=== PATIENT | male | born 1955 | race Two or more races ===

== ENCOUNTER 2016-02-21 18:21 | Inpatient (IN) | payer SELFPAY ==
[~2016-02-21] VITALS: Ht 165.1 cm; Wt 75.1 kg
[2016-02-21] VITALS (9 sets, daily range): BP systolic 100–120; BP diastolic 75–88
[2016-02-21 18:41] LABS: HEMATOCRIT 33.8 % (38.0-50.0); MCH 21.4 PG (29.0-34.0); MCHC 29.6 G/DL (30.0-36.0); MCV 72.4 FL (86-99); PLATELET COUNT 334 K/uL (156-360); RBC DIS.WIDTH-CV 17.9 % (11.8-14.6); RBC DIS.WIDTH-SD 46.1 % (39-53); RED BLOOD COUNT 4.67 M/uL (4.00-5.50); WHITE BLOOD COUNT 6.8 K/uL (4.1-10.2)
[2016-02-21 18:43] LABS: EOSINOPHIL (%) 1.3 % (0-5); EOSINOPHIL COUNT 0.1 K/uL (0-0.3); IMMATURE GRANULOCYTE (%) 0.1 % (0.0-0.7); IMMATURE GRANULOCYTE COUNT 0.1 K/uL; LYMPHOCYTE COUNT 2.3 K/uL (1.0-2.8); MONOCYTE (%) 9.5 % (3-12); MONOCYTE COUNT 0.7 K/uL (0-0.8); NEUTROPHIL (%) 54.7 % (45-76); NEUTROPHIL COUNT 3.7 K/uL (1.8-6.4)
[2016-02-21 18:52] LABS: PROTHROMBIN TIME 10.5 (9.2-11.2)
[2016-02-21 19:03] LABS: TROP-I INTERPRETATION NEGATIVE; TROPONIN-I < 0.01 ng/mL (0.0-0.30)
[2016-02-21 19:07] LABS: AMYLASE 81 IU/L (1-118); CHLORIDE 103 mEq/L (99-109); POTASSIUM 4.1 mEq/L (3.7-5.4); SODIUM 136 mEq/L (136-147)
[2016-02-21 19:08] LABS: GLUCOSE 120 mg/dL (70-99)
[2016-02-21 19:10] LABS: ANION GAP 13 MEQ/L (2-14)
[2016-02-21 19:12] LABS: GFR ESTIMATE (CALCULATED) > 59 mL/min/; SERUM ETHYL ALCOHOL < 10 mg/dL
[2016-02-21 19:13] LABS: UREA NITROGEN (BUN) 10 mg/dL (9-23)
[2016-02-21 19:15] LABS: LIPASE 38 U/L (1.0-51.0)
[2016-02-21 22:38] LABS: METH RESISTANT S AUREUS PCR NEGATIVE (NEGATIVE); PROBE CHECK PASS; SPECIMEN PROCESSING CONTROL PASS
[2016-02-22] VITALS (23 sets, daily range): BP systolic 85–129; BP diastolic 64–85
[2016-02-22 05:29] LABS: HEMATOCRIT 31.3 % (38.0-50.0); MCHC 28.8 G/DL (30.0-36.0); MEAN PLAT.VOLUME 9.8 uM^3 (9.0-12.4); PLATELET COUNT 275 K/uL (156-360); RBC DIS.WIDTH-CV 17.9 % (11.8-14.6); RBC DIS.WIDTH-SD 47.5 % (39-53); RED BLOOD COUNT 4.29 M/uL (4.00-5.50); WHITE BLOOD COUNT 6.4 K/uL (4.1-10.2)
[2016-02-22 06:17] LABS: TROP-I INTERPRETATION POSITIVE
[2016-02-22 06:22] LABS: TROPONIN-I 230.67 ng/mL (0.0-0.30)
[2016-02-22 06:47] LABS: CK-MB 226.7 ng/mL (0.0-4.9)
[2016-02-22 06:50] LABS: EOSINOPHIL (%) 1.2 % (0-5); EOSINOPHIL COUNT 0.1 K/uL (0-0.3); IMMATURE GRANULOCYTE (%) 0.2 % (0.0-0.7); LYMPHOCYTE COUNT 1.4 K/uL (1.0-2.8); MONOCYTE COUNT 0.7 K/uL (0-0.8); NEUTROPHIL (%) 66.1 % (45-76); NEUTROPHIL COUNT 4.3 K/uL (1.8-6.4)
[2016-02-22 06:54] LABS: Estimated Average Glucose 140 mg/dL (70-123); HEMOGLOBIN A1c (GLYCOHEMOGLOB) 6.5 % HGB (Below 5.7)
[2016-02-22 06:58] LABS: ANION GAP 7 MEQ/L (2-14); CHLORIDE 103 MEQ/L (99-109); CREATINE KINASE 3848 IU/L (1-294); GFR ESTIMATE (CALCULATED) > 59 mL/min/; GLUCOSE 87 mg/dL (70-99); HDL CHOLESTEROL 37 MG/DL (Desirable>=40); LDL CHOLESTEROL 143 mg/dL (Desirable<100); NON-HDL CHOLESTEROL 169 mg/dL (Desirable<160); POTASSIUM 4.2 MEQ/L (3.7-5.4); SAMPLE HEMOLYSIS CHECK 0; SAMPLE ICTERIC CHECK 0; SAMPLE LIPEMIA CHECK 0; SODIUM 135 MEQ/L (136-147); TOTAL CHOLESTEROL 206 mg/dL (Desirable<200); TOTAL CK 3848 IU/L (1-294); TRIGLYCERIDES 128 MG/DL (Normal: <150); UREA NITROGEN (BUN) 9 mg/dL (9-23)
[2016-02-22 11:41] LABS: POINT-OF-CARE METER ID UU13113803
[2016-02-22 13:17] LABS: TROP-I INTERPRETATION POSITIVE
[2016-02-22 13:30] LABS: TROPONIN-I 162.02 ng/mL (0.0-0.30)
[2016-02-22 13:38] LABS: CREATINE KINASE 2908 IU/L (1-294); TOTAL CK 2908 IU/L (1-294)
[2016-02-22 16:38] LABS: POINT-OF-CARE METER ID UU13113803
[2016-02-22 19:02] LABS: TROP-I INTERPRETATION POSITIVE
[2016-02-22 19:15] LABS: CK-MB 89.2 ng/mL (0.0-4.9)
[2016-02-22 20:00] LABS: TOTAL CK 2376 IU/L (1-294)
[2016-02-22 20:31] LABS: TROPONIN-I 128.99 ng/mL (0.0-0.30)
[2016-02-22 20:32] LABS: CREATINE KINASE 2376 IU/L (1-294)
[2016-02-22 21:24] LABS: POINT-OF-CARE METER ID UU13113731
[2016-02-23] VITALS (15 sets, daily range): BP systolic 82–113; BP diastolic 53–77
[2016-02-23 08:48] LABS: POINT-OF-CARE METER ID UU13113731
[2016-02-23] MEDS ORDERED: CLOPIDOGREL75 MG PO (11:25)
[2016-02-23] MEDS ORDERED: LISINOPRIL2.5 MG PO (11:25)
[2016-02-23] MEDS ORDERED: ATORVASTATIN CA80 MG PO (11:25)
[2016-02-23] MEDS ORDERED: ASPIR-LOW81 MG PO (11:25)
[2016-02-23] MEDS ORDERED: METOPROLOL SUCC25 MG PO (11:25)
[2016-02-23 11:38] LABS: POINT-OF-CARE METER ID UU13113731
== END 2016-02-23 14:40 | disposition home or self-care (01) | DRG 247 ==
LOC: EME 18:21 → EDBD 18:21 → EME 19:20 → CATH 19:20 → 4WEST 20:47
PROVIDERS: Emergency Medicine; Internal Medicine Cardiovascular Disease
DX: I21.19 ST elevation (STEMI) myocardial infarction involving other coronary artery of inferior wall (principal); I25.82 Chronic total occlusion of coronary artery; I95.9 Hypotension, unspecified; I10 Essential (primary) hypertension; E11.9 Type 2 diabetes mellitus without complications; I25.10 Atherosclerotic heart disease of native coronary artery without angina pectoris; E78.5 Hyperlipidemia, unspecified
CPT/HCPCS: 80048; 80061; 81003; 82150; 82550; 82550 91; 82553; 82948; 83036; 83690; 84484; 85025; 85610; 85730; 86850; 86900; 86901; 87641; 93005; 94799; 99281; 99285; C1725; C1757; C1769; C1874; C1887; G0480; J0461; J1644; J1815; J2250; J2270; J2370; J2405; J3010; J3246; J7050